=== PATIENT | female | born 1955 | race Caucasian/White ===

== ENCOUNTER → 2021-06-07 | Outpatient (CLI) | payer MEDICARE, OTHER ==
--- NOTE | 2021-06-07 10:51 | RAD ---
EXAM: Pelvis and right hip, 2 views. HISTORY: Pain. COMPARISON: None. FINDINGS: A frontal view the pelvis and frog-leg view the right hip are obtained. There is no fractur e, dislocation or subluxation. There is scoliosis and degenerative change involving the lower lumbar spine. IMPRESSION: No acute osseous finding. Electronically signed by: Akila Abbott MD (06/07/2021 10:49 AM) [id number]
== END ==
LOC: RAD 09:39
PROVIDERS: ATTEND Physical Medicine & Rehabilitation
DX: M16.11 Unilateral primary osteoarthritis, right hip (principal); M47.816 Spondylosis without myelopathy or radiculopathy, lumbar region; M41.86 Other forms of scoliosis, lumbar region; M25.551 Pain in right hip
CPT/HCPCS: 73502